=== PATIENT | female | born 1965 | race Caucasian/White ===

== ENCOUNTER 2020-05-08 18:04 | Emergency (ER) | payer OTHER ==
[~2020-05-08] VITALS: Ht 162.6 cm; Wt 81.8 kg
[2020-05-08] MEDS ORDERED: ACETAMINOPHEN 325 MG TABLET PO ONE (20:00)
[2020-05-08 21:09] VITALS: BP 140/86
== END 2020-05-08 21:30 | disposition home or self-care (01) ==
LOC: EMS 18:06
DX: S06.0X0A Concussion without loss of consciousness, initial encounter (principal); W22.8XXA Striking against or struck by other objects, initial encounter; Y93.89 Activity, other specified; Y92.89 Other specified places as the place of occurrence of the external cause; Y99.8 Other external cause status
CPT/HCPCS: 70450; 72125